=== PATIENT | female | born 1945 | race Caucasian/White ===

== ENCOUNTER 2021-04-21 11:11 | Emergency (ER) | payer MEDICARE ==
[~2021-04-21 11:11] MED LIST: ANTIVERT25 MG PO; ASPIRIN EC81 M1 PO; ASPIRIN325 MG PO; ATIVAN1 MG PO; CRESTOR10 MG PO; HYDROCODON-ACE1 EAC4 PO; LISINOPRIL 10MG10 MG PO; MACRODANTIN50 MG PO; MELATONIN5 M2 PO; MINOXIDIL2.5 MG PO; PERCOCET 5-3251 EACH PO; PRILOSEC20 MG PO; SYNTHROID 0.1M0.1 MG PO; SYNTHROID112 MCG PO; TRAZODONE 100M100 MG PO; WELLBUTRIN XL300 MG PO; ZYRTEC10 MG PO
[2021-04-21 13:21] LABS: BILIRUBIN NEGATIVE (NEGATIVE); BLOOD NEGATIVE Ery/uL (NEGATIVE); CLARITY CLEAR (CLEAR); COLOR YELLOW (YELLOW); GLUCOSE (U) NORMAL (NORMAL); LEUKOCYTES NEGATIVE Leu/uL (NEGATIVE); NITRITE NEGATIVE (NEGATIVE); PROTEIN NEGATIVE (NEGATIVE); SPECIFIC GRAVITY 1.025 (1.001-1.030)
[2021-04-21 13:30] LABS: BASOPHIL 0.5 % (0-2); EOSINOPHIL 0.3 % (0-7); HGB 12.9 g/dl (12.5-16.0); LYMPHOCYTE 9.4 % (15-48); MCH 30.2 pg (25.0-31.0); MCHC 32.3 g/dL (32.0-36.0); MCV 93.7 fL (78.0-100.0); MONOCYTE 8.1 % (0-12); MPV 10.5 fL (6.0-9.5); NEUTROPHIL 81.4 % (41-80); NRBC 0; PLT 250 K/uL (150-400); RBC 4.27 M/uL (4.20-5.40); RDW 12.5 % (11.5-14.0); WBC 11.5 K/uL (4.0-10.5)
[2021-04-21 13:51] LABS: BUN/CREAT RATIO (CALC) 24.7 RATIO; CREATININE 0.81 mg/dL (0.51-0.95); POTASSIUM 4.4 mmol/L (3.5-5.1)
[2021-04-21 14:57] LABS: LACTIC ACID 0.8 mmol/L (0.4-1.9)
[2021-04-21] MEDS ORDERED: ONDANSETRON HCL4 MG PO (17:16)
[2021-04-21] MEDS ORDERED: CIPRO500 MG PO (17:16)
[2021-04-21] MEDS ORDERED: METRONIDAZOLE500 MG PO (17:16)
[2021-04-21] MEDS ORDERED: NORCO 5-325 TA1 EACH PO (17:16)
== END 2021-04-21 17:30 | disposition home or self-care (01) ==
LOC: FER 11:11
PROVIDERS: Emergency Medicine; Nurse Practitioner Family
DX: K57.32 Diverticulitis of large intestine without perforation or abscess without bleeding (principal); I10 Essential (primary) hypertension; Z86.73 Personal history of transient ischemic attack (TIA), and cerebral infarction without residual deficits; Z88.0 Allergy status to penicillin; Z88.2 Allergy status to sulfonamides; Z91.041 Radiographic dye allergy status
CPT/HCPCS: 36415; 80048; 81003; 83605; 85025; Q0162